=== PATIENT | male | born 1965 | race Caucasian/White ===

== ENCOUNTER 2019-04-04 20:33 | Inpatient (IN) | payer BC, OTHER ==
[2019-04-04] MEDS ORDERED: DILTIAZEM DRIP BOLUS FROM BAG 1 MG SOLN IV ONE (21:40)
[2019-04-04] MEDS ORDERED: SODIUM CHLORIDE 0.9% 500 ML 500 ML IV STA (21:40)
[2019-04-04 21:50] LABS: Basophils % (A) 0 %; Eosinophils # (A) 0.3 k/uL (0-0.7); Eosinophils % (A) 2 %; HCT 46.7 % (39.0-53.0); HGB 15.1 gm/dL (13.0-17.5); Lymphocytes # (A) 2.2 k/uL (1.0-4.8); Lymphocytes % (A) 21 %; MCH 27.7 pg (25.0-35.0); MCHC 32.3 g/dL (31.0-37.0); MCV 85.8 fL (80.0-100.0); Mean Platelet Volume 6.2; Monocytes # (A) 0.6 k/uL (0-1.0); Monocytes % (A) 5 %; Neutrophils # (A) 7.2 k/uL (1.3-7.7); Neutrophils % (A) 68 %; Platelet Count 218 k/uL (150-450); RBC 5.44 m/uL (4.30-5.90); RDW 14.4 % (11.5-15.5); WBC 10.6 k/uL (3.8-10.6)
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
[2019-04-04 22:00] LABS: Albumin 4.1 g/dL (3.5-5.0); Calcium 9.2 mg/dL (8.4-10.2); Magnesium 1.8 mg/dL (1.6-2.3); Potassium 4.3 mmol/L (3.5-5.1); Total Protein 6.7 g/dL (6.3-8.2)
[2019-04-04 22:11] LABS: D-Dimer 0.5 mg/L FEU (<0.60); INR 1.1 (<1.2); Partial Thromboplastin Time 23.9 sec (22.0-30.0); Prothrombin Time 11.4 sec (9.0-12.0)
--- NOTE | 2019-04-04 22:13 | XR ---
EXAMINATION: XR chest 2V DATE AND TIME: 04/04/2019 9:52 PM CLINICAL INDICATION: PHH; dysrhythmia TECHNIQUE: Departmental protocol COMPARISON: 04/27/2016 FINDINGS: There is a subtle interstitial pattern suggesting mild interstitial phase pulmonary edema if clinical ly corroborated. Otherwise, the lungs are clear and well-expanded bilaterally. The pleural spaces are negative. The cardiac silhouette is mildly enlarged. The remainder of the mediastinal silhouette is unremarkabl e. The skeletal structures and soft tissues are negative for acute findings. IMPRESSION: Suggestive findings for mild interstitial phase pulmonary edema.
[2019-04-04] MEDS: DILTIAZEM 125 MG in SODIUM CHLORIDE 0.9% 100 ML IV SCH (22:18)
[2019-04-04] MEDS ORDERED: ENOXAPARIN 150 MG/ML SYRINGE SQ STA (23:31)
[2019-04-05] MEDS ORDERED: NITROGLYCERIN SL TABS 0.4 MG TAB SUBLINGUAL PRN (00:07)
[2019-04-05 01:15] LABS: Appearance,Urine Clear (Clear); Bilirubin,Urine Negative (Negative); Blood,Urine Negative (Negative); Color,Urine Yellow; Glucose,Urine (UA) Negative (Negative); Ketones,Urine Negative (Negative); Leukocyte Esterase,Urine Negative (Negative); Nitrite,Urine Negative (Negative); Protein,Urine Trace (Negative); Urobilinogen,Urine <2.0 mg/dL (<2.0)
[2019-04-05 01:26] LABS: Amphetamine Screen,Urine Not Detected (NotDetected); Barbiturate Screen,Urine Not Detected (NotDetected); Benzodiazepines Screen,Urine Not Detected (NotDetected); Cocaine Screen,Urine Not Detected (NotDetected); Methadone Screen, Urine Not Detected (NotDetected); Opiate Screen,Urine Not Detected (NotDetected); Oxycodone Screen, Urine Not Detected (NotDetected); Phencyclidine Screen,Urine Not Detected (NotDetected); Tricyclic Antidepressant,Urine Not Detected (NotDetected); Urn Cannabinoid Scrn Detected (NotDetected)
[2019-04-05 05:13] LABS: Anisocytosis Slight; Basophils % (A) 0 %; Eosinophils # (A) 0.3 k/uL (0-0.7); Eosinophils % (A) 3 %; HCT 44.8 % (39.0-53.0); HGB 14.3 gm/dL (13.0-17.5); Lymphocytes # (A) 2.1 k/uL (1.0-4.8); Lymphocytes % (A) 23 %; MCH 27.9 pg (25.0-35.0); MCV 87.3 fL (80.0-100.0); Monocytes # (A) 0.5 k/uL (0-1.0); Monocytes % (A) 6 %; Neutrophils % (A) 66 %; Platelet Count 168 k/uL (150-450); RBC 5.13 m/uL (4.30-5.90); RDW 16.2 % (11.5-15.5); WBC 9.1 k/uL (3.8-10.6)
[2019-04-05 05:19] LABS: Calcium 8.5 mg/dL (8.4-10.2); Magnesium 1.7 mg/dL (1.6-2.3)
[2019-04-05] MEDS: MAGNESIUM SULFATE-D5W PMX 1 GM in DEXTROSE/WATER 1 100ML.BAG IVPB SCH ×2 (06:42→07:38)
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
[2019-04-05] MEDS: DILTIAZEM 125 MG in SODIUM CHLORIDE 0.9% 100 ML IV SCH ×2 (08:56→20:12)
--- NOTE | 2019-04-05 09:06 | US ---
EXAMINATION TYPE: US venous doppler duplex LE DATE OF EXAM: 04/05/2019 8:49 AM COMPARISON: NONE CLINICAL HISTORY: Rule out DVT.Bilateral foot swelling today. SIDE PERFORMED: Bilateral TECHNIQUE: The lower extremity deep venous system is examined utilizing real time linear array sonog nolberto with graded compression, doppler sonography and color-flow sonography. VESSELS IMAGED: Common Femoral Vein Deep Femoral Vein Greater Saphenous Vein * Femoral Vein Popliteal Vein Small Saphenous Vein * Proximal Calf Veins (* superficial vessels) There is normal flow, compressibility, vascular waveforms. Right Leg: Negative for DVT Left Leg: Negative for DVT Some edema channels are present within the left leg IMPRESSION: No evident deep venous arthrosis at or above the knees, follow-up as indicated.
[2019-04-05 10:38] VITALS: BMI 43.2
--- NOTE | 2019-04-05 12:59 | ECHOF ---
Referral Reason:New-onset atrial flutter MEASUREMENTS -------- HEIGHT: 200.7 cm WEIGHT: 132.9 kg BP: 103/78 RVIDd: 3.7 cm (< 3.3) IVSd: 1.2 cm (0.6 - 1.1) LVIDd: 5.3 cm (3.9 - 5.3) LVPWd: 1.3 cm (0.6 - 1.1) IVSs: 1.6 cm LVIDs: 4.0 cm LVPWs: 2.0 cm LAESV Index (A-L): 27.19 ml/m Ao Diam: 3.2 cm (2.0 - 3.7) AV Cusp: 2.5 cm (1.5 - 2.6) LA Diam: 4.5 cm (2.7 - 3.8) EPSS: 0.9 cm RAP: 20.00 mmHg RVSP: 56.32 mmHg MV EF SLOPE: 143.89 mm/s (70 - 150) MV EXCURSION: 1.47 cm (> 18.000) FINDINGS -------- Atrial fibrillation. This was a technically difficult study with suboptimal views. The left ventricular size is normal. There is mild concentric left ventricular hypertrophy. There is mild global hypokinesis of LV . Overall left ventricular systolic function is mildly impaired w ith, an EF between 45 - 50 %. The right ventricle is mildly enlarged. Left atrium is normal size by volume. The right atrial size is normal. Lumason used Interatrial and interventricular septum intact. The aortic valve is trileaflet and appears structurally normal. The mitral valve is normal. [id number] mitral regurgitation is present. Moderate to severe tricuspid regurgitation present. There is moderate to severe pulmonary hypertens ion. The right ventricular systolic pressure, as measured by Doppler, is 56.32mmHg. The pulmonic valve was not well visualized. Trace/mild (physiologic) pulmonic regurgitation. The aortic root size is normal. The inferior vena cava is dilated with no significant inspiratory collapse which is consistent estima jose g right atrial pressure of >20 mmHg. There is a trivial pericardial effusion present. CONCLUSIONS -------- 1. Atrial fibrillation. 2. This was a technically difficult study with suboptimal views. 3. The left ventricular size is normal. 4. There is mild concentric left ventricular hypertrophy. 5. There is mild global hypokinesis of LV . 6. Overall left ventricular systolic function is mildly impaired with, an EF between 45 - 50 %. 7. The right ventricle is mildly enlarged. 8. Left atrium is normal size by volume. 9. Lumason used 10. Interatrial and interventricular septum intact. 11. The aortic valve is trileaflet and appears structurally normal. 12. The mitral valve is normal. 13. [id number] mitral regurgitation is present. 14. Moderate to severe tricuspid regurgitation present. 15. There is moderate to severe pulmonary hypertension. 16. Trace/mild (physiologic) pulmonic regurgitation. 17. The aortic root size is normal. 18. The inferior vena cava is dilated with no significant inspiratory collapse which is consistent es timated right atrial pressure of >20 mmHg. 19. There is a trivial pericardial effusion present. LOG LOADER HELPER: Kamini Pérez RDCS
[2019-04-05] MEDS: ENOXAPARIN 150 MG/ML SYRINGE SQ SCH (13:41)
[2019-04-05] MEDS: METOPROLOL TARTRATE 12.5 MG TAB PO SCH ×2 (14:11→20:08)
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
[2019-04-05] MEDS: WARFARIN 5 MG TAB PO SCH (18:18)
[2019-04-06] MEDS: ENOXAPARIN 150 MG/ML SYRINGE SQ SCH ×2 (00:27→12:05)
[2019-04-06 06:04] LABS: Basophils % (A) 0 %; Eosinophils # (A) 0.3 k/uL (0-0.7); Eosinophils % (A) 3 %; HCT 45.6 % (39.0-53.0); HGB 14.2 gm/dL (13.0-17.5); Lymphocytes # (A) 1.5 k/uL (1.0-4.8); Lymphocytes % (A) 16 %; MCH 27.5 pg (25.0-35.0); MCHC 31.1 g/dL (31.0-37.0); MCV 88.6 fL (80.0-100.0); Mean Platelet Volume 6.3; Monocytes # (A) 0.5 k/uL (0-1.0); Monocytes % (A) 5 %; Neutrophils # (A) 6.8 k/uL (1.3-7.7); Neutrophils % (A) 73 %; Platelet Count 201 k/uL (150-450); RBC 5.14 m/uL (4.30-5.90); RDW 14.4 % (11.5-15.5); WBC 9.4 k/uL (3.8-10.6)
[2019-04-06 06:20] LABS: INR 1.1 (<1.2); Prothrombin Time 11.7 sec (9.0-12.0)
[2019-04-06 06:22] LABS: Calcium 8.5 mg/dL (8.4-10.2); Potassium 4.5 mmol/L (3.5-5.1)
[2019-04-06] MEDS: METOPROLOL TARTRATE 12.5 MG TAB PO SCH (09:36)
[2019-04-06] MEDS: ASPIRIN 325 MG TAB PO SCH (09:36)
[2019-04-06] MEDS: DIGOXIN 250 MCG/ML 2 ML AMP IVP SCH ×2 (13:14→17:01)
--- NOTE | 2019-04-06 15:42 | P.PN ---
Subjective Progress Note Date: 04/06/19 This 53-year-old gentleman is admitted to the hospital with atrial fibrillation, cardiomyopathy and congestive heart failure. Patient is feeling better. Less short of breath. Urine output is good. Patient went into atrial fibrillation with rapid ventricular response last night. Patient required restarting of Cardizem. I'm going to start him on Lanoxin 0.25 mg now and repeat dose of 0.25 and 6 hours. Lanoxin 0.125 mg from tomorrow. We'll continue with the rest of the medication. Increase activity. Probably discontinue IV Cardizem in few hours Objective - Vital Signs Vital signs: Vital Signs Temp 98.1 F 04/06/19 08:00 Pulse 111 H 04/06/19 10:00 Resp 21 04/06/19 10:00 BP 112/98 04/06/19 10:00 Pulse Ox 95 04/06/19 10:00 Intake & Output 04/05/19 04/06/19 04/06/19 18:59 06:59 18:59 Intake Total 417.583 28.833 Output Total 875 625 300 Balance -457.417 -596.167 -300 Weight 132.903 kg 137.3 kg Intake: Intake, IV Titration 177.583 28.833 Amount Diltiazem 125 mg In 177.583 28.833 Sodium Chloride 0.9% 100 ml @ 5 MG/HR 5 mls/hr IV .Q24H [facility] Rx#:[id number] Oral 240 Output: Urine 875 625 300 Other: Voiding Method Urinal Urinal Urinal # Voids 1 - Exam GENERAL EXAM: Patient is alert and oriented and doesn't appear to be in any acute distress HEENT: Normocephalic. Normal reaction of pupils, equal size, normal range of extraocular motion. No erythema or exudates in the throat. NECK: No masses, no nuchal rigidity. CHEST: No chest wall deformity. LUNGS: Equal air entry with no crackles or wheeze. HEART: S1 and S2 normal. Irregular heart sounds ABDOMEN: No hepatosplenomegaly, normal bowel sounds, no guarding or rigidity. SKIN: No rashes CENTRAL NERVOUS SYSTEM: No focal deficits. EXTREMITIES: Resolving edema - Labs CBC & Chem 7: 04/06/19 05:28 04/06/19 05:28 Labs: Abnormal Lab Results - Last 24 Hours (Table) 04/06/19 Range/Units 05:28 Glucose 119 H (74-99) mg/dL HDL Cholesterol 26 L (40-60) mg/dL Assessment and Plan (1) Combined systolic and diastolic heart failure, acute Current Visit: Yes Status: Acute Code(s): I50.41 - ACUTE COMBINED SYSTOLIC AND DIASTOLIC (CONGESTIVE) HRT FAIL SNOMED Code(s): 996352875720637 (2) Atrial flutter with rapid ventricular response Current Visit: Yes Status: Acute Code(s): I48.92 - UNSPECIFIED ATRIAL FLUTT ER SNOMED Code(s): 2471056 Plan: Patient is improving. His heart rate is not well controlled. I will initiate him on IV digoxin and increase the beta lesly as tolerated. Increase activity
[2019-04-06] MEDS: FUROSEMIDE 40 MG TAB PO SCH (17:03)
[2019-04-06] MEDS: WARFARIN 5 MG TAB PO SCH (17:03)
[2019-04-06] MEDS: METOPROLOL TARTRATE 25 MG TAB PO SCH (20:21)
[2019-04-07] MEDS: ENOXAPARIN 150 MG/ML SYRINGE SQ SCH ×2 (00:31→13:37)
[2019-04-07 05:32] LABS: Anisocytosis Slight; HCT 45.6 % (39.0-53.0); MCH 28.5 pg (25.0-35.0); MCHC 32.9 g/dL (31.0-37.0); MCV 86.6 fL (80.0-100.0); Mean Platelet Volume 6.6; Platelet Count 174 k/uL (150-450); RBC 5.26 m/uL (4.30-5.90); WBC 9.2 k/uL (3.8-10.6)
[2019-04-07 05:41] LABS: INR 1.1 (<1.2)
[2019-04-07 05:49] LABS: Calcium 8.6 mg/dL (8.4-10.2); Potassium 4.2 mmol/L (3.5-5.1)
--- NOTE | 2019-04-07 06:54 | P.PN ---
Subjective This is a pleasant 53 years old male with past medical history of syncope, osteoarthritis. Depression and marijuana use. Presents with dyspnea for 1 month duration. Patient states that he came to the hospital because of 2 days of leg swelling, more on the left side and one month history of dyspnea. However patient denies chest pain or discomfort. No abdominal pain or fever. No change in urine or bowel habits. No dizziness or syncope. Also he denies smoking or alcohol. On admission he is been afebrile, tachycardic 100-120, blood pressure is stable and he is saturating 99% on 2 L oxygen. Labs show normal WBC and unremarkable CBC and BMP. On admission his creatinine was elevated at 1.3, came to within normal limits to 1.2. ProBNP is 3620. TSH 2.8. Negative troponin. EKG showing atrial flutter with variable AV block heart rate of 144. Patient was started on Cardizem drip currently at 5 mg per hour, started on Lovenox at the rapeutic dose 1:30 milligrams twice a day. Also aspirin 325 mg. And replace electrolytes. 04/06/2019 pt is comfortable in not distress. he denies chest pain , no dyspnea , he says both feels better , pt is mildly tachycardic, pt alreay has Echo showing the atrial biritllatoin , EF 45-55%, moderate Mitral regurgitation , moderate to sever tricuspid regurgitation.doppler of lower extremities was negative for DVT. he is on aspirin, and plavixs ,cardizem ,. pt is on lovenox and warfarin for a nticoagulation , INR is still 1.1 Objective - Vital Signs Vital signs: Vital Signs Temp 98.2 F 04/06/19 20:00 Pulse 118 H 04/06/19 20:00 Resp 23 04/06/19 20:00 BP 119/73 04/06/19 20:00 Pulse Ox 96 04/06/19 20:00 Intake & Output 04/06/19 04/06/19 04/07/19 06:59 18:59 06:59 Intake Total 28.833 310.583 Output Total 625 550 Balance -596.167 -239.417 Weight 137.3 kg Intake: Intake, IV Titration 60.583 Amount Diltiazem 125 mg In 60.583 Sodium Chloride 0.9% 100 ml @ 5 MG/HR 5 mls/hr IV .Q24H [facility] Rx#:[id number] Oral 250 Output: Urine 625 550 Other: Voiding Method Urinal Urinal Urinal # Voids 1 1 # Bowel Movements 1 - Exam GENERAL: The patient is alert and oriented x3, not in any acute distress. Well developed, well nourished. HEENT: Pupils are round and equally reacting to light. EOMI. No scleral icterus. No conjunctival pallor. Normocephalic, atraumatic. No pharyngeal erythema. No thyromegaly. CARDIOVASCULAR: S1 and S2 present. No murmurs, rubs, or gallops. PULMONARY: Chest is clear to auscultation, no wheezing or crackles. ABDOMEN: Soft, nontender, nondistended, normoactive bowel sounds. No palpable organomegaly. MUSCULOSKELETAL: No joint swelling or deformity. -EXTREMITIES: No cyanosis, clubbing. Bilateral leg edema, more on the left side NEUROLOGICAL: Gross neurological examination did not reveal any focal deficits. SKIN: No rashes. - Labs CBC & Chem 7: 04/07/19 05:13 04/07/19 05:13 Labs: Abnormal Lab Results - Last 24 Hours (Table) 04/06/19 Range/Units 05:28 Glucose 119 H (74-99) mg/dL HDL Cholesterol 26 L (40-60) mg/dL Assessment and Plan Assessment: Atrial fibrillation/flutter, with rapid ventricular response Acute systolic congestive heart failure, EF 45-55% moderate Mitral regurgitation , moderate to sever tricuspid regurgitation. History of syncope Substance abuse, marijuana Plan: This is a pleasant 53 years old male who presents because of atrial f ibrillation/flutter with RVR. treated with Cardizem drip until it is wished to oral Cardizem or beta blockers as per machine sole leveler. Continue with anticoagulation. Cardiology consult. Doppler of the lower extremity was negative for DVT. Labs and medication were reviewed.. Continue same treatment. Continue with symptomatic treatment. Resume home medication. Monitor lytes and vitals. DVT and GI prophylaxis. Further recommendations of the clinical course of the patient DVT prophylaxis: Subcutaneous Lovenox GI Prophylaxis: Pepcid Prognosis is guarded
[2019-04-07] MEDS: ASPIRIN 325 MG TAB PO SCH (09:59)
[2019-04-07] MEDS: FAMOTIDINE 20 MG/2 ML VIAL IV SCH ×2 (09:59→21:10)
[2019-04-07] MEDS: SPIRONOLACTONE 25 MG TAB PO SCH (10:10)
[2019-04-07] MEDS: FUROSEMIDE 40 MG TAB PO SCH ×2 (10:11→16:40)
[2019-04-07] MEDS: DIGOXIN 125 MCG TAB PO SCH (10:11)
[2019-04-07] MEDS: METOPROLOL TARTRATE 25 MG TAB PO SCH (10:11)
[2019-04-07] MEDS ORDERED: METOPROLOL TARTRATE 25 MG TAB PO STA (11:41)
[2019-04-07] MEDS: DILTIAZEM 125 MG in SODIUM CHLORIDE 0.9% 100 ML IV SCH (16:38)
[2019-04-07] MEDS: WARFARIN 5 MG TAB PO SCH (16:40)
--- NOTE | 2019-04-07 17:23 | P.PN ---
Subjective Progress Note Date: 04/07/19 This 53-year-old gentleman is admitted to the hospital with atrial fibrillation, cardiomyopathy and congestive heart failure. Patient is feeling better. Less short of breath. Urine output is good. Patient went into atrial fibrillation with rapid ventricular response last night. Patient required restarting of Cardizem. I'm going to start him on Lanoxin 0.25 mg now and repeat dose of 0.25 and 6 hours. Lanoxin 0.125 mg from tomorrow. We'll continue with the rest of the medication. Increase activity. Probably discontinue IV Cardizem in few hours. 04/07/2019. This patient is admitted to the hospital with the findings of CHF and found to have cardiomyopathy. Patient also in atrial fibrillation. Patient is on combination of metoprolol and Lanoxin for rate control. I increase the dose of the metoprolol to 50 mg twice a day. Patient otherwise clinically doing well. His edema has cleared. We'll switch to by mouth diuretics. Increase activity. Possible discharge within next 24 hours. Lab values show normal hemoglobin. Electoral lites are normal. Renal function is normal with c reatinine of 1.19. Magnesium level is 2 Objective - Vital Signs Vital signs: Vital Signs Temp 97.5 F L 04/07/19 16:00 Pulse 123 H 04/07/19 16:00 Resp 20 04/07/19 16:00 BP 117/77 04/07/19 16:00 Pulse Ox 98 04/07/19 16:00 Intake & Output 04/06/19 04/07/19 04/07/19 18:59 06:59 18:59 Intake Total 310.583 250 270 Output Total 550 1950 1600 Balance -239.417 -1700 -1330 Weight 132.8 kg Intake: IV 20 0.9 20 Intake, IV Titration 60.583 Amount Diltiazem 125 mg In 60.583 Sodium Chloride 0.9% 100 ml @ 5 MG/HR 5 mls/hr IV .Q24H [facility] Rx#:[id number] Oral 250 250 250 Output: Urine 550 1950 1600 Other: Voiding Method Urinal Urinal Urinal # Voids 2 1 # Bowel Movements 1 1 - Exam GENERAL EXAM: Patient is alert and oriented and doesn't appear to be in any acute distress HEENT: Normocephalic. Normal reaction of pupils, equal size, normal range of extraocular motion. No erythema or exudates in the throat. NECK: No masses, no nuchal rigidity. CHEST: No chest wall deformity. LUNGS: Equal air entry with no crackles or wheeze. HEART: S1 and S2 normal. Irregular heart sounds ABDOMEN: No hepatosplenomegaly, normal bowel sounds, no guarding or rigidity. SKIN: No rashes CENTRAL NERVOUS SYSTEM: No focal deficits. EXTREMITIES: Resolved edema - Labs CBC & Chem 7: 04/07/19 05:13 04/07/19 05:13 Labs: Abnormal Lab Results - Last 24 Hours (Table) 04/07/19 04/07/19 Range/Units 05:13 05:13 RDW 16.0 H (11.5-15.5) % Carbon Dioxide 31 H (22-30) mmol/L Glucose 104 H (74-99) mg/dL Assessment and Plan (1) Combined systolic and diastolic heart failure, acute Current Visit: Yes Status: Acute Code(s): I50.41 - ACUTE COMBINED SYSTOLIC AND DIASTOLIC (CONGESTIVE) HRT FAIL SNOMED Code(s): 705783383577172 (2) Atrial flutter with rapid ventricular response Current Visit: Yes Status: Acute Code(s): I48.92 - UNSPECIFIED ATRIAL FLUTTER SNOMED Code(s): 2116125 Plan: I will increase the dose of the metoprolol to 80 mg by mouth twice a day. Continue rest of the medical therapy. Increase activity. Possible discharge in a.m.
[2019-04-07] MEDS: METOPROLOL TARTRATE 50 MG TAB PO SCH (21:10)
[2019-04-08] MEDS: ENOXAPARIN 150 MG/ML SYRINGE SQ SCH ×3 (00:55→23:52)
[2019-04-08 07:09] LABS: INR 1.2 (<1.2); Prothrombin Time 12.3 sec (9.0-12.0)
[2019-04-08 07:10] LABS: Basophils % (A) 0 %; Eosinophils # (A) 0.3 k/uL (0-0.7); Eosinophils % (A) 4 %; HGB 16.5 gm/dL (13.0-17.5); Lymphocytes # (A) 1.9 k/uL (1.0-4.8); Lymphocytes % (A) 22 %; MCHC 32.4 g/dL (31.0-37.0); MCV 86.4 fL (80.0-100.0); Mean Platelet Volume 6.1; Monocytes # (A) 0.6 k/uL (0-1.0); Monocytes % (A) 6 %; Neutrophils # (A) 5.7 k/uL (1.3-7.7); Neutrophils % (A) 65 %; Platelet Count 218 k/uL (150-450); RDW 14.2 % (11.5-15.5); WBC 8.8 k/uL (3.8-10.6)
[2019-04-08 07:16] LABS: Calcium 8.7 mg/dL (8.4-10.2); Potassium 4.5 mmol/L (3.5-5.1)
[2019-04-08] MEDS: ASPIRIN 325 MG TAB PO SCH (10:25)
[2019-04-08] MEDS: SPIRONOLACTONE 25 MG TAB PO SCH (10:25)
[2019-04-08] MEDS: METOPROLOL TARTRATE 50 MG TAB PO SCH ×2 (10:25→20:52)
--- NOTE | 2019-04-08 10:25 | P.PN ---
Subjective Progress Note Date: 04/08/19 This 53-year-old gentleman is admitted to the hospital with atrial fibrillation, cardiomyopathy and congestive heart failure. Patient is feeling better. Less short of breath. Urine output is good. Patient went into atrial fibrillation with rapid ventricular response last night. Patient required restarting of Cardizem. I'm going to start him on Lanoxin 0.25 mg now and repeat dose of 0.25 and 6 hours. Lanoxin 0.125 mg from tomorrow. We'll continue with the rest of the medication. Increase activity. Probably discontinue IV Cardizem in few hours. 04/07/2019. This patient is admitted to the hospital with the findings of CHF and found to have cardiomyopathy. Patient also in atrial fibrillation. Patient is on combination of metoprolol and Lanoxin for rate control. I increase the dose of the metoprolol to 50 mg twice a day. Patient otherwise clinically doing well. His edema has cleared. We'll switch to by mouth diuretics. Increase activity. Possible discharge within next 24 hours. Lab values show normal hemoglobin. Electoral lites are normal. Renal function is normal with c reatinine of 1.19. Magnesium level is 2 03/29/2019: The patient has been continued on Coumadin but unfortunately his INR today is only 1.2. Goal is between 2 and 2.5. We'll plan on 7.5 mg Coumadin tonight. He is currently being bridged with Lovenox but does not have any insurance coverage. Plan to recheck INR in the morning with possible discharge tomorrow. BUN 18 creatinine 1.4. Lasix will be changed to daily. Patient is off Cardizem drip. Objective - Vital Signs Vital signs: Vital Signs Temp 98 F 04/07/19 20:00 Pulse 92 04/08/19 03:38 Resp 18 04/08/19 03:38 BP 152/93 04/08/19 03:38 Pulse Ox 96 04/08/19 03:38 Intake & Output 04/07/19 04/08/19 04/08/19 18:59 06:59 18:59 Intake Total 270 370 240 Output Total 1600 1400 700 Balance -5830 -1030 -460 Weight 127.4 kg Intake: IV 20 0.9 20 Oral 250 370 240 Output: Urine 1600 1400 700 Other: Voiding Method Urinal Urinal # Voids 1 1 # Bowel Movements 1 - Exam GENERAL EXAM: Patient is alert and oriented in no acute distress HEENT: Normocephalic. Normal reaction of pupils, equal size, normal range of extraocular motion. No erythema or exudates in the throat. NECK: No masses, no nuchal rigidity. CHEST: No chest wall deformity. LUNGS: Equal air entry with no crackles or wheeze. HEART: S1 and S2 normal. Irregular heart sounds ABDOMEN: No hepatosplenomegaly, normal bowel sounds, no guarding or rigidity. SKIN: No rashes CENTRAL NERVOUS SYSTEM: No focal deficits. EXTREMITIES: Resolved edema - Labs CBC & Chem 7: 04/08/19 06:34 04/08/19 06:34 Labs: Abnormal Lab Results - Last 24 Hours (Table) 04/08/19 04/08/19 Range/Units 06:34 06:34 PT 12.3 H (9.0-12.0) sec INR 1.2 H (<1.2) Carbon Dioxide 33 H (22-30) mmol/L Creatinine 1.40 H (0.66-1.25) mg/dL Glucose 123 H (74-99) mg/dL Assessment and Plan Plan: (1) Combined systolic and diastolic heart failure, acute Current Visit: Yes Status: Acute Code(s): I50.41 - ACUTE COMBINED SYSTOLIC AND DIASTOLIC (CONGESTIVE) HRT FAIL SNOMED Code(s): 787916741836110 (2) Atrial flutter with rapid ventricular response Current Visit: Yes Status: Acute Code(s): I48.92 - UNSPECIFIED ATRIAL FLUTTER SNOMED Code(s): 4197554 Plan: Coumadin 7.5 mg tonight and recheck INR in the morning. Lasix will be decreased to 40 mg daily. Continue Lopressor 50 mg twice daily, digoxin 125 g daily, Aldactone 12.5 mg daily. Increase activity. Possible discharge in a.m. Nurse practitioner note has been reviewed, I agree with the document and findings and plan of care. Patient has been seen and examined.
[2019-04-08] MEDS: FUROSEMIDE 40 MG TAB PO SCH (10:26)
[2019-04-08] MEDS: FAMOTIDINE 20 MG/2 ML VIAL IV SCH ×2 (10:26→20:52)
[2019-04-08] MEDS: DIGOXIN 125 MCG TAB PO SCH (10:26)
[2019-04-08] MEDS ORDERED: WARFARIN 7.5 MG TAB PO SCH (18:00)
--- NOTE | 2019-04-08 21:57 | P.PN ---
Subjective Progress Note Date: 04/07/19 Principal diagnosis: New-onset atrial fibrillation This is a pleasant 53 years old male with past medical history of syncope, osteoarthritis. Depression and marijuana use. Presents with dyspnea for 1 month duration. Patient states that he came to the hospital because of 2 days of leg swelling, more on the left side and one month history of dyspnea. However patient denies chest pain or discomfort. No abdominal pain or fever. No change in urine or bowel habits. No dizziness or syncope. Also he denies smoking or alcohol. On admission he is been afebrile, tachycardic 100-120, blood pressure is stable and he is saturating 99% on 2 L oxygen. Labs show normal WBC and unremarkable CBC and BMP. On admission his creatinine was elevated at 1.3, came to within normal limits to 1.2. ProBNP is 3620. TSH 2.8. Negative troponin. EKG showing atrial flutter with variable AV block heart rate of 144. Patient was started on Cardizem drip currently at 5 mg per hour, started on Lovenox at therapeutic dose 1:30 milligrams twice a day. Also aspirin 325 mg. And replace electrolytes. 04/06/2019 pt is comfortable in not distress. he denies chest pain , no dyspnea , he says both feels better , pt is mildly tachycardic, pt alreay has Echo showing the atrial biritllatoin , EF 45-55%, moderate Mitral regurgitation , moderate to sever tricuspid regurgitation.doppler of lower extremities was negative for DVT. he is on aspirin, and plavixs ,cardizem ,. pt is on lovenox and warfarin for anticoagulation , INR is still 1.1 04 07 2019 Patient was admitted to the hospital with fibrillation, rapid regular rate. Also developed acute CHF with both systolic and diastolic dysfunction. Currently rate is fairly controlled. Continued on metoprolol increase the dose today. Lasix changed to by mouth. Cardiology is following. No complaints of chest pain or worsening shortness of breath. No nausea vomiting or abdominal pain or diarrhea. No other acute overnight issues. Current medications reviewed. Objective - Vital Signs Vital signs: Vital Signs Temp 97.5 F L 04/07/19 16:00 Pulse 123 H 04/07/19 16:00 Resp 20 04/07/19 16:00 BP 117/77 04/07/19 16:00 Pulse Ox 98 04/07/19 16:00 Intake & Output 04/07/19 04/07/19 04/08/19 06:59 18:59 06:59 Intake Total 250 270 Output Total 1949 1599 Balance -1700 -1330 Weight 132.8 kg Intake: IV 20 0.9 20 Oral 250 250 Output: Urine 1949 1599 Other: Voiding Method Urinal Urinal # Voids 2 1 # Bowel Movements 1 1 - Exam PHYSICAL EXAMINATION: Patient is lying in the bed comfortably, no acute distress, awake alert and oriented.. HEENT: Normocephalic. Neck is supple. Pupils reactive. Nostrils clear. Oral cavity is moist. Ears reveal no drainage. Neck reveals no JVD, carotid bruits, or thyromegaly. CHEST EXAMINATION: Trachea is central. Symmetrical expansion. Minimal basilar crackles. Lung hurtado clear to auscultation and percussion. CARDIAC: Normal S1, S2 with no gallops. No murmurs ABDOMEN: Soft. Bowel sounds normal. No organomegaly. No abdominal bruits. Extremities: Trace edema. No clubbing or cyanosis Neurologically awake, alert, oriented x3 with well-coordinated movements. No focal deficits noted Skin: No rash or skin lesions. Psychiatric: Coperative. Nonsuicidal Musculoskeletal: No joint swelling or deformity. Normal range of motion. - Labs CBC & Chem 7: 04/08/19 06:34 04/08/19 06:34 Labs: Abnormal Lab Results - Last 24 Hours (Table) 04/07/19 04/07/19 Range/Units 05:13 05:13 RDW 16.0 H (11.5-15.5) % Carbon Dioxide 31 H (22-30) mmol/L Glucose 104 H (74-99) mg/dL Assessment and Plan Assessment: Atrial fibrillation/flutter, with rapid ventricular response Acute systolic and diastolic congestive heart failure, EF 45-55% moderate Mitral regurgitation , moderate to sever tricuspid regurgitation. History of syncope Substance abuse, marijuana Coumadin dosing Plan: This is a pleasant 53 years old male who presents because of atrial fibrillation/flutter with RVR. treated with Cardizem drip until it is wished to oral Cardizem or beta blockers as per mold setter. Continue with anticoagulation. Cardiology is following. Doppler of the lower extremity was negative for DVT. Labs and medication were reviewed.. Monitor lytes and vitals. DVT and GI prophylaxis. Further recommendations based on the clinical course of the patient DVT prophylaxis: Subcutaneous Lovenox and also on Coumadin. GI Prophylaxis: Pepcid Prognosis is guarded Time with Patient: Greater than 30
[2019-04-09] MEDS: DILTIAZEM 125 MG in SODIUM CHLORIDE 0.9% 100 ML IV SCH (03:43)
[2019-04-09 07:01] LABS: INR 1.3 (<1.2); Prothrombin Time 13.3 sec (9.0-12.0)
[2019-04-09] MEDS: ASPIRIN 325 MG TAB PO SCH (08:33)
[2019-04-09] MEDS: METOPROLOL TARTRATE 50 MG TAB PO SCH (08:33)
[2019-04-09] MEDS: DIGOXIN 125 MCG TAB PO SCH (08:33)
[2019-04-09] MEDS: SPIRONOLACTONE 25 MG TAB PO SCH (08:33)
[2019-04-09] MEDS ORDERED: FAMOTIDINE 20 MG TAB PO SCH (09:00)
[2019-04-09] MEDS ORDERED: FUROSEMIDE 40 MG TAB PO SCH (09:00)
[2019-04-09 09:37] VITALS: PULSE 65; RESP 16
[2019-04-09 11:51] VITALS: TEMP 97.8
--- NOTE | 2019-04-09 14:56 | P.PN ---
Subjective Progress Note Date: 04/09/19 This is a 53-year-old gentleman with history of depression and also marijuana use, was admitted to the hospital with complaints of increasing pedal swelling and shortness of breath over the last 2 months. Patient also having symptoms of orthopnea and paroxysmal nocturnal dyspnea. Patient has been is sleeping sitting up. No history of any dizziness, palpitation or syncope. No history of any recent upper respiratory infections. Patient however has been having some cough. Denies any smoking or alcohol abuse. On admission patient was found to have proBNP of more than 3620. EKG showed atrial flutter. Flutter and fibrillation with variable AV conduction with heart rates in the 140s. His echocardiogram showed an ejection fraction of 45-50%. There is evidence of severe tricuspid regurgitation. Mild to moderate mitral regurgitation and moderate pulmonary hypertension. Chest x-ray also showed evidence of CHF. Patient is being treated with IV Cardizem along with diuretics. I'm going to p ut him on beta lesly and SHARAN inhibitor R's along with diuretics and anticoagulation therapy. Patient will be started on Coumadin and INRs will be followed. Once patient's heart rate is controlled and CHF is cleared, patient could be discharged on medical therapy along with anticoagulation. We will consider cardioversion in about 4-6 weeks. Patient may also need workup to rule out underlying ischemic heart disease which can be done as a stress test in the near future. 04/09/2019 Patient was seen and examined this morning, doing much better overall, currently on by mouth diuretics. Objective - Vital Signs Vital signs: Vital Signs Temp 97.8 F 04/09/19 11:35 Pulse 65 04/09/19 11:35 Resp 16 04/09/19 11:35 BP 108/78 04/09/19 11:35 Pulse Ox 100 04/09/19 11:35 Intake & Output 04/08/19 04/09/19 04/09/19 18:59 06:59 18:59 Intake Total 906 1280 Output Total 700 Balance 206 1280 Weight 126.2 kg Intake: Oral 906 1280 Output: Urine 700 Other: Voiding Method Urinal Urinal Urinal # Voids 1 1 - Exam GENERAL EXAM: Patient is alert and oriented and doesn't appear to be in any acute distress HEENT: Normocephalic. Normal reaction of pupils, equal size, normal range of extraocular motion. No erythema or exudates in the throat. NECK: No masses, no nuchal rigidity. Mild JVD CHEST: No chest wall deformity. LUNGS: Diminished breath sounds at bases. HEART: It S1 and S2 normal with no audible mumurs or gallops. Irregular rhythm ABDOMEN: No hepatosplenomegaly, normal bowel sounds, no guarding or rigidity. SKIN: No rashes CENTRAL NERVOUS SYSTEM: No focal deficits. EXTREMITIES: 3+ edema - Labs CBC & Chem 7: 04/08/19 06:34 04/08/19 06:34 Labs: Abnormal Lab Results - Last 24 Hours (Table) 04/09/19 Range/Units 06:15 PT 13.3 H (9.0-12.0) sec INR 1.3 H (<1.2) Assessment and Plan Plan: Assessment and plan #1 combined systolic and diastolic congestive heart failure, improving #2 atrial flutter, typical Plan Patient is currently on Coumadin, because he has no insurance, we will switch him over to Eliquis, providing him with a coupon, and setting him up for financial assistance program. He may be able to be discharged home today from our perspective. We will make a follow-up appointment in the office post discharge. DNP note has been reviewed, I agree with a documented findings and plan of care. Patient was seen and examined.
[2019-04-09] MEDS: ENOXAPARIN 150 MG/ML SYRINGE SQ SCH (15:12)
--- NOTE | 2019-04-09 15:58 | P.PN ---
Subjective Progress Note Date: 04/08/19 Principal diagnosis: New-onset atrial fibrillation This is a pleasant 53 years old male with past medical history of syncope, osteoarthritis. Depression and marijuana use. Presents with dyspnea for 1 month duration. Patient states that he came to the hospital because of 2 days of leg swelling, more on the left side and one month history of dyspnea. However patient denies chest pain or discomfort. No abdominal pain or fever. No change in urine or bowel habits. No dizziness or syncope. Also he denies smoking or alcohol. On admission he is been afebrile, tachycardic 100-120, blood pressure is stable and he is saturating 99% on 2 L oxygen. Labs show normal WBC and unremarkable CBC and BMP. On admission his creatinine was elevated at 1.3, came to within normal limits to 1.2. ProBNP is 3620. TSH 2.8. Negative troponin. EKG showing atrial flutter with variable AV block heart rate of 144. Patient was started on Cardizem drip currently at 5 mg per hour, started on Lovenox at therapeutic dose 1:30 milligrams twice a day. Also aspirin 325 mg. And replace electrolytes. 04/06/2019 pt is comfortable in not distress. he denies chest pain , no dyspnea , he says both feels better , pt is mildly tachycardic, pt alreay has Echo showing the atrial biritllatoin , EF 45-55%, moderate Mitral regurgitation , moderate to sever tricuspid regurgitation.doppler of lower extremities was negative for DVT. he is on aspirin, and plavixs ,cardizem ,. pt is on lovenox and warfarin for anticoagulation , INR is still 1.1 04 07 2019 Patient was admitted to the hospital with fibrillation, rapid regular rate. Also developed acute CHF with both systolic and diastolic dysfunction. Currently rate is fairly controlled. Continued on metoprolol increase the dose today. Lasix changed to by mouth. Cardiology is following. No complaints of chest pain or worsening shortness of breath. No nausea vomiting or abdominal pain or diarrhea. No other acute overnight issues. 04/08/2010 Patient denied any complaints of chest pain or shortness of breath. No palpitations. No headache or dizziness or lightheadedness. INR level is 1.2 today. Patient is on Lovenox. Lasix has been changed to by mouth. No nausea vomiting or abdominal pain. Patient denied any other complaints at this time. Heart rate is better controlled. Current medications reviewed. Objective - Vital Signs Vital signs: Vital Signs Temp 98.4 F 04/08/19 20:00 Pulse 79 04/08/19 20:00 Resp 18 04/08/19 20:00 BP 124/86 04/08/19 20:00 Pulse Ox 98 04/08/19 20:00 Intake & Output 04/08/19 04/08/19 04/09/19 06:59 18:59 06:59 Intake Total 370 906 Output Total 1400 700 Balance -1030 206 Weight 127.4 kg Intake: Oral 370 906 Output: Urine 1400 700 Other: Voiding Method Urinal Urinal Urinal # Voids 1 - Exam PHYSICAL EXAMINATION: Patient is lying in the bed comfortably, no acute distress, awake alert and oriented.. HEENT: Normocephalic. Neck is supple. Pupils reactive. Nostrils clear. Oral cavity is moist. Ears reveal no drainage. Neck reveals no JVD, carotid bruits, or thyromegaly. CHEST EXAMINATION: Trachea is central. Symmetrical expansion. Minimal basilar crackles. Lung hurtado clear to auscultation and percussion. CARDIAC: Normal S1, S2 with no gallops. No murmurs ABDOMEN: Soft. Bowel sounds normal. No organomegaly. No abdominal bruits. Extremities: Trace edema. No clubbing or cyanosis Neurologically awake, alert, oriented x3 with well-coordinated movements. No focal deficits noted Skin: No rash or skin lesions. Psychiatric: Coperative. Nonsuicidal Musculoskeletal: No joint swelling or deformity. Normal range of motion. - Labs CBC & Chem 7: 04/08/19 06:34 04/08/19 06:34 Labs: Abnormal Lab Results - Last 24 Hours (Table) 04/08/19 04/08/19 Range/Units 06:34 06:34 PT 12.3 H (9.0-12.0) sec INR 1.2 H (<1.2) Carbon Dioxide 33 H (22-30) mmol/L Creatinine 1.40 H (0.66-1.25) mg/dL Glucose 123 H (74-99) mg/dL Assessment and Plan Assessment: Atrial fibrillation/flutter, with rapid ventricular response Acute systolic and diastolic congestive heart failure, EF 45-55% moderate Mitral regurgitation , moderate to sever tricuspid regurgitation. History of syncope Substance abuse, marijuana Coumadin dosing Plan: This is a pleasant 53 years old male who presents because of atrial fibrillation/flutter with RVR. treated with Cardizem drip until it is wished to oral Cardizem or beta blockers as per cuff slitter. Continue with anticoagulation. Cardiology is following. Doppler of the lower extremity was negative for DVT. Labs and medication were reviewed.. Monitor lytes and vitals. DVT and GI prophylaxis. Further recommendations based on the clinical course of the patient DVT prophylaxis: Subcutaneous Lovenox and also on Coumadin. GI Prophylaxis: Pepcid Prognosis is guarded Time with Patient: Greater than 30
[2019-04-09] MEDS ORDERED: METOPROLOL TARTRATE 50 MG TAB PO SCH (16:00)
[2019-04-09 16:05] VITALS: BP 118/68
--- NOTE | 2019-04-09 16:10 | CDI ---
Documentation Clarification Form Date: April 09, 2019 From: Carmita Mo RN CCDS Phone: '[phone] Admit Date: 04/05/2019 12:07:00 AM Patient Name: Bruce Jameson I Visit Number: [id number] Discharge Date: ATTENTION: The Clinical Documentation Specialists (CDI) and [facility] Coding Staff appreciate your assistance in clarifying documentation. Please respond to the clarification below the line at the bottom and electronically sign. The CDI & [facility] Coding staff will review the response and follow-up if needed. Please note: Queries are made part of the Legal Health Record. If you have any questions, please contact the author of this message via ITS. Dr. Nancy Howard Atrial Fibrillation and Atiral Flutter are documented in the Consult and Progress Notes History/Risk factors: 53 year old male presents to the ED with dyspnea for one month duration. Medical history OA Clinical Indicators: Per Consult EKG showed atrtial flutter. Flutter and fibrillation with variable AV conduction rates in the 140s. Vss 125/98 141 EKG/telemetry: Flutter with variable AV block Treatment: Cardizem Drip; Lovenox, Coumadin; Eliquis, Digoxin; Consults: Cardiology In your professional opinion, can you please clarify the type of Arrhythmia, if known? * Chronic/Permanent Atrial Fibrillation * Paroxysmal Atrial Fibrillation * Persistent Atrial Fibrillation * Typical / Type 1 Atrial Flutter * Atypical / Type 2 Atrial Flutter * Other, please specify * Unable to determine (Last Revision: January 2018) MTDD
[2019-04-09] MEDS ORDERED: APIXABAN 5 MG TAB PO SCH (21:00)
[2019-04-10] MEDS ORDERED: ASPIRIN 81 MG PO SCH (09:00)
== END 2019-04-09 17:16 | disposition home health service (06) | DRG 292 ==
LOC: EC 20:33 → 2SICU 04-05 00:07 → 3SCARD 04-08 01:28
PROVIDERS: ADMIT Family Medicine; ATTEND Family Medicine
DX: I50.41 Acute combined systolic (congestive) and diastolic (congestive) heart failure (principal); I42.9 Cardiomyopathy, unspecified; I48.3 Typical atrial flutter; F12.10 Cannabis abuse, uncomplicated; F32.9 Major depressive disorder, single episode, unspecified; I08.1 Rheumatic disorders of both mitral and tricuspid valves; I27.20 Pulmonary hypertension, unspecified; I44.30 Unspecified atrioventricular block; I48.91 Unspecified atrial fibrillation; M19.011 Primary osteoarthritis, right shoulder; M19.012 Primary osteoarthritis, left shoulder; Z79.01 Long term (current) use of anticoagulants; Z79.82 Long term (current) use of aspirin; Z80.1 Family history of malignant neoplasm of trachea, bronchus and lung; Z82.49 Family history of ischemic heart disease and other diseases of the circulatory system; M54.5 Low back pain; Z86.14 Personal history of Methicillin resistant Staphylococcus aureus infection
CPT/HCPCS: 36415; 71046; 80048; 80053; 80061; 80306; 81003; 83605; 83735; 83880; 84443; 84484; 85025; 85027; 85379; 85610; 85730; 93306; 93970; 96365; 96366; 96372; 96376; 99285

== ENCOUNTER → 2020-09-26 | Day surgery (SDC) | payer OTHER ==
[2020-09-25 11:28] VITALS: BMI 45.0
[~2020-09-26] MED LIST: AMIODARONE 200 MG TAB PO SCH; MIDAZOLAM 2 MG/2 ML VIAL ONE; PROPOFOL 10 MG/ML 20 ML VIAL IV ONE; SODIUM CHLORIDE 0.9% 1,000 ML IV SCH; SODIUM CHLORIDE 0.9% 500 ML 500 ML IV ONE
[2020-09-26 06:58] VITALS: TEMP 98.2
[2020-09-26 07:18] LABS: INR 2.4 (<1.2); Prothrombin Time 23.6 sec (9.0-12.0)
[2020-09-26] MEDS: BENZOCAINE SPRAY 1 CAN TOPICAL ONE ×2 (07:20→07:30)
--- NOTE | 2020-09-26 08:07 | P.PCN ---
Date of Procedure: 09/26/20 Preoperative Diagnosis: Cardiomyopathy, atrial fibrillation and CHF Postoperative Diagnosis: Unsuccessful cardioversion with brief duration of conversion to sinus rhythm Procedure(s) Performed: LESLY followed by cardioversion Description of Procedure: Procedure: LESLY: This patient is a 54-year-old gentleman with history of persistent atrial fibrillation, cardiomyopathy and congestive heart failure who is been anticoagulated adequately. Patient is advised to have a LESLY examination prior to cardioversion. Department of anesthesia given, IV propofol for sedation. A lubricated Omni probe was introduced in the oropharynx and was advanced into the esophagus. Multiple views were obtained. Patient tolerated the procedure well. Color, pulsed and continuous with Doppler studies were performed. Saline contrast bubble injection was also done. Findings: The left atrial appendage is free of any clot. The interatrial septum is intact without any shunt. Contrast saline bubble injection did not reveal any crossing of the bubbles across the septum. Diuretic valve function is normal. Mitral valve showed mild regurgitation. Tricuspid showed trace regurgitation. Left atrium appears to moderate enlarged. Left ankle function appear to be mildly impaired. No plaque in the aorta. Impression and plan: No evidence of clot in the left atrial appendage. Proceed with cardioversion. CARDIOVERSION: After completion of the LESLY, anterior posterior paddles were applied. Synchronized shocks of 200 J, followed by 300 followed with the hand 60 J was applied. Patient remained in sinus rhythm briefly but converted back to sinus rhythm. Impression and plan: Unsuccessful cardioversion. Patient will be treated with by mouth amiodarone and will bring him back for cardioversion in 2-3 weeks.
[2020-09-26 08:12] VITALS: RESP 18
[2020-09-26 09:18] LABS: Calcium 8.5 mg/dL (8.4-10.2); Potassium 4.6 mmol/L (3.5-5.1)
[2020-09-26 09:28] VITALS: BP 131/65; PULSE 101
== END ==
LOC: CATHCVL 06:28
PROVIDERS: ATTEND Internal Medicine Cardiovascular Disease
DX: I48.19 Other persistent atrial fibrillation (principal); I34.0 Nonrheumatic mitral (valve) insufficiency; I42.0 Dilated cardiomyopathy; I50.42 Chronic combined systolic (congestive) and diastolic (congestive) heart failure; I11.0 Hypertensive heart disease with heart failure; I25.2 Old myocardial infarction; Z79.01 Long term (current) use of anticoagulants; Z79.82 Long term (current) use of aspirin; Z79.899 Other long term (current) drug therapy; Z98.890 Other specified postprocedural states; Z87.39 Personal history of other diseases of the musculoskeletal system and connective tissue; Z82.49 Family history of ischemic heart disease and other diseases of the circulatory system
CPT/HCPCS: 93312; 93320; 93325; 92960; 80048; 85610; J2250; J2704

== ENCOUNTER 2021-02-28 11:57 | Emergency (ER) | payer OTHER ==
[2021-02-28 12:01] VITALS: RESP 18
[2021-02-28] MEDS ORDERED: LIDOCAINE URO-JET JELLY 2% 5 ML KIT URETHRAL ONE (12:34)
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
[2021-02-28 13:02] LABS: Appearance,Urine Clear (Clear); Bilirubin,Urine Negative (Negative); Blood,Urine Negative (Negative); Color,Urine Yellow; Glucose,Urine (UA) Negative (Negative); Ketones,Urine Negative (Negative); Leukocyte Esterase,Urine Negative (Negative); Mucus,Urine Rare /hpf; Nitrite,Urine Negative (Negative); PH, Urine 5.5 (5.0-8.0); Protein,Urine 1+ (Negative); Specific Gravity,Urine 1.018 (1.001-1.035); Urobilinogen,Urine <2.0 mg/dL (<2.0); WBC,Urine 1 /hpf (0-5)
[2021-02-28] MEDS ORDERED: TAMSULOSIN 0.4 MG CAP.ER.24H PO STA (13:45)
[2021-02-28 14:16] VITALS: BP 144/78; PULSE 72; TEMP 98.3
== END 2021-02-28 14:16 | disposition home or self-care (01) ==
LOC: EC 11:57
DX: R33.9 Retention of urine, unspecified (principal); R14.0 Abdominal distension (gaseous); R10.30 Lower abdominal pain, unspecified; I48.91 Unspecified atrial fibrillation; E78.5 Hyperlipidemia, unspecified; I10 Essential (primary) hypertension; M19.90 Unspecified osteoarthritis, unspecified site; F32.9 Major depressive disorder, single episode, unspecified; Z79.82 Long term (current) use of aspirin; Z79.01 Long term (current) use of anticoagulants
CPT/HCPCS: 51702; 51798; 81001; 99283

== ENCOUNTER 2021-03-10 | Emergency (ER) | payer OTHER ==
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
== END 2021-03-10 18:57 | disposition home or self-care (01) ==
CPT/HCPCS: 99283

== ENCOUNTER 2021-03-15 15:56 | Emergency (ER) | payer OTHER ==
[2021-03-15 16:09] VITALS: BP 151/97; PULSE 128; RESP 24; TEMP 98.3
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
== END 2021-03-15 16:43 | disposition home or self-care (01) ==
LOC: EC 15:56
DX: R33.9 Retention of urine, unspecified (principal); I10 Essential (primary) hypertension; I48.91 Unspecified atrial fibrillation; E78.5 Hyperlipidemia, unspecified; M19.90 Unspecified osteoarthritis, unspecified site; F32.9 Major depressive disorder, single episode, unspecified; F12.90 Cannabis use, unspecified, uncomplicated; Z79.82 Long term (current) use of aspirin; Z79.01 Long term (current) use of anticoagulants
CPT/HCPCS: 51702; 99282

== ENCOUNTER → 2022-07-08 | Outpatient (CLI) | payer OTHER ==
[2022-07-08 22:55] LABS: INR 2.27 (0.90-1.11)
[2022-07-09 00:55] LABS: African American GFR (CKD) 69.1 (60.0-200.0); Albumin 4.2 g/dL (3.8-4.9); Albumin/Globulin Ratio 1.77 (1.60-3.17); Anion Gap 11.3 mmol/L (10.00-18.00); BUN/Creat Ratio 11.04 Ratio (12.00-20.00); Blood Urea Nitrogen 14.8 mg/dL (9.0-27.0); Calcium 9.2 mg/dL (8.7-10.3); Carbon Dioxide 26.1 mmol/L (20.0-27.5); Globulin 2.4 g/dL (1.6-3.3); Non-African American GFR(CKD) 59.6 (60.0-200.0); Potassium 4.2 mmol/L (3.5-5.5); Total Protein 6.6 g/dL (6.2-8.2)
[2022-07-09 02:01] LABS: HCT 46.5 % (39.6-50.0); HGB 15.3 g/dL (13.0-17.0); MCH 29.3 pg (27.0-32.0); MCHC 32.9 g/dL (32.0-37.0); MCV 89.1 fL (80.0-97.0); Mean Platelet Volume 9.6 fL (9.5-12.2); NRBC Per 100 WBC 0 /100 WBCS (0.0-0.0); Platelet Count 210 X 10*3/uL (140-440); RBC 5.22 X 10*6/uL (4.40-5.60); RDW 13.8 % (11.5-14.5)
== END | disposition home or self-care (01) ==
LOC: LABWHC1 14:18
PROVIDERS: ATTEND Nurse Practitioner Adult Health
DX: I48.19 Other persistent atrial fibrillation (principal)
CPT/HCPCS: 36415; 80053; 85027; 85610

== ENCOUNTER 2022-07-13 12:47 | Day surgery (SDC) | payer OTHER ==
[2022-07-09 15:33] VITALS: BMI 42.0
[~2022-07-13 12:47] MED LIST changes: -AMIODARONE 200 MG TAB PO SCH; -MIDAZOLAM 2 MG/2 ML VIAL ONE; -PROPOFOL 10 MG/ML 20 ML VIAL IV ONE; -SODIUM CHLORIDE 0.9% 500 ML 500 ML IV ONE
[2022-07-13] MEDS ORDERED: SODIUM CHLORIDE 0.9% 500 ML 500 ML IV ONE (13:20)
[2022-07-13 13:58] LABS: INR 2.1 (<1.2); Prothrombin Time 21.5 sec (9.0-12.0)
[2022-07-13] MEDS ORDERED: MIDAZOLAM 2 MG/2 ML VIAL ONE (15:13)
[2022-07-13] MEDS ORDERED: fentaNYL (PF) 50 MCG/ML 2 ML AMP ONE (15:13)
[2022-07-13] MEDS ORDERED: HEPARIN SODIUM,PORCINE 10,000 UNIT/ML 1 ML VIAL ONE (15:13)
[2022-07-13] MEDS ORDERED: LIDOCAINE 2% INJ 20 MG/ML (2 ML VIAL) ONE (15:13)
[2022-07-13] MEDS ORDERED: PROPOFOL 10 MG/ML 20 ML VIAL IV ONE (15:13)
[2022-07-13] MEDS ORDERED: SUCCINYLCHOLINE CHLORIDE 200 MG/10 ML VIAL IV ONE (15:13)
[2022-07-13] MEDS ORDERED: SODIUM CHLORIDE 0.9% 1,000 ML IV ONE ×3 (15:44→19:06)
[2022-07-13] MEDS ORDERED: HEPARIN SOD,PORK IN 0.45% NACL 25,000 UNIT in 0.45% NACL 1 250ML.BAG IV ONE (15:45)
[2022-07-13] MEDS ORDERED: LIDOCAINE 1% INJ 10MG/ML (30 ML VIAL-PF) SQ ONE (16:01)
[2022-07-13] MEDS ORDERED: IOPAMIDOL-370 100ML BTL INJ ONE (17:21)
[2022-07-13] MEDS ORDERED: ACETAMINOPHEN TAB 325 MG TAB PO PRN (18:10)
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
--- NOTE | 2022-07-13 18:20 | P.EPPROC ---
- EP Procedure Note Electrophysiology Procedure Note: PROCEDURE A. fib ablation/PVI/left atrial septal ablation DIAGNOSIS Persistent Atrial fibrillation, symptomatic, refractory to therapy RESULT No left atrial appendage mass seen on intracardiac echo Termination of atrial fibrillation during left inferior pulmonary vein isolation Successful A. fib ablation/pulmonary vein isolation of all veins using cryo- ablation Complete entrance block in all 4 veins confirmed Left atrial septal ablation No evidence for phrenic nerve injury Esophageal deflection YES , right-sided Electrical cardioversion with a synchronized shock across the chest for atrial tachycardia that was induced during the right superior pulmonary vein cannulation PROCEDURE DETAILS Patient was brought to the EP lab in a fasting state after obtaining written informed consent. Procedure performed under general anesthesia Esophagus was intubated. Esophageal temperature monitoring with circa catheter. Esophageal deflection with an endoscope to avoid hypothermia of the esophagus. After initial muscle relaxant use, muscle relaxants were not given thereafter in order to assess phrenic nerve during procedure. Patient prepped and draped as per protocol Cryo ablation-set up with standard preparation of the cryoablation tools done. Femoral Venous access obtained on the right and left groins and sheaths placed Diagnostic catheters for the high right atrium, phrenic nerve stimulation and pacing, His bundle, coronary sinus placed Intracardiac echo catheter placed. Long sheath placed in the right atrium Left and right transseptal catheterization performed under intracardiac echo guidance. Intravenous heparin with aCT above 300 Later, catheter positioning and balloon positioning in the left atrium and pulmonary veins, under intracardiac echo guidance Diagnostic EP study with coronary sinus pacing and recording Baseline measurements: Sinus cycle length 872 ms, RI interval 140 ms and QRS 78 ms QT 425 ms AH 84 and HV 65 ms Transseptal catheterization performed RA pressure 16/12/14 LA pressure 21/9/16 Transseptal catheterization performed with standard sheath. The cryoablation sheath was then placed with an over the wire exchange without any acute complications. The cryoablation balloon was placed in the office of each pulmonary vein and all 4 pulmonary veins were isolated. IV dye was injected to confirm occlusion. Goal: achieve complete occlusion of the pulmonary vein, achieve -30 degrees C at 30 seconds and achieve -40 degrees C at 60 seconds and a time to effect of less than 60 seconds. If not, the balloon was repositioned to obtain this result After completion of Cryoblation with durations from 180-240 seconds, entrance block was confirmed with the Attain circular catheter in a roving fashion around the antrum of the pulmonary veins Phrenic nerve pacing was performed from the SVC, right innominate vein area and diaphragm voltage was monitored. Diaphragmatic contractions were also monitored manually for strength of contraction. At the end of the procedure the Achieve catheter was once again used to check for entrance block Termination of atrial fibrillation occurred during the left inferior pulmonary vein isolation The anatomy of the left-sided veins was unusual and was more anterior posterior rather than superior-inferior in xarelto positions Left septal ablation was performed cannulation of the vein in the rhina A full carinal ablation with septal ablation was performed and the area was quiescent During cannulation of the right superior pulmonary vein and atrial tachycardia cycle length of about 245 ms was induced At the end of the procedure he underwent electrical cardioversion successfully to sinus rhythm Phrenic nerve stimulation was performed to confirm diaphragmatic stimulation the end of the procedure Cine fluoroscopy was performed at the very end of the procedure to confirm movement of both diaphragms with inspiration and expiration At the end of the procedure the patient was extubated Venous sheaths were removed and hemostasis assured with a closure device PROCEDURES PERFORMED Diagnostic EP study CS pacing and recording Left and right transseptal catheterization Catheter the mapping of the tachycardia Intracardiac echocardiography Pulmonary vein isolation with transseptal and comprehensive EPS, [id number] Linear ablation, left atrium, +[id number] Electrical cardioversion with a synchronized shock across the chest [id number]
[2022-07-13] MEDS ORDERED: ONDANSETRON 4 MG/2 ML VIAL IVP ONE (18:23)
[2022-07-13] MEDS: ACETAMINOPHEN IV (For NPO) 1,000 MG in EMPTY BAG 1 BAG IVPB ONE ×2 (18:45→19:00)
[2022-07-13] MEDS ORDERED: diphenhydrAMINE 50 MG/ML 1 ML VIAL IVP ONE (18:59)
[2022-07-13] MEDS: LACTATED RINGERS 1,000 ML IV SCH (20:21)
[2022-07-13] MEDS: METOPROLOL TARTRATE 50 MG TAB PO SCH (20:36)
[2022-07-13] MEDS ORDERED: WARFARIN 7.5 MG TAB PO ONE (21:00)
[2022-07-13] MEDS ORDERED: HYDROcodone/APAP 5-325MG 1 EACH TAB PO PRN (22:16)
[2022-07-14] MEDS: LACTATED RINGERS 1,000 ML IV SCH (05:19)
--- NOTE | 2022-07-14 08:11 | P.DS ---
Providers Attending physician: Des Magaña [facility] Course: Patient is doing well. He has been ambulating around to the bathroom no dizziness no lightheadedness Mild sore throat Rhythm is regular EKG is normal Blood pressure 101/67 mmHg pulse rate in the 70s afebrile 98.3F Groin is healed well Sutures were removed by the nurse in my presence No hematoma Impression Long-standing persistent atrial fibrillation Termination of atrial fibrillation during L IPV ablation Successful cryoablation of the pulmonary veins with complete isolation and ablation of left atrial septum Plan Reduce metoprolol to 50 g twice daily Continue Coumadin Follow Dr. Chow in the week Continue all other medications as before Discharged today by 12 known if him 10K stable Discussed with an ax Plan - Discharge Summary Discharge Rx Participant: No New Discharge Prescriptions: New RX: Metoprolol Tartrate [Lopressor] 50 mg PO BID #90 tab Discontinued RX: Metoprolol Tartrate [Lopressor] 75 mg PO BID No Action RX: Aspirin 81 mg PO DAILY #30 chew RX: Warfarin [Coumadin] 7.5 mg PO Q48H Warfarin [Coumadin] 5 mg PO Q48H Discharge Medication List RX: Aspirin 81 mg PO DAILY #30 chew 04/09/19 [Rx] RX: Warfarin [Coumadin] 7.5 mg PO Q48H 09/25/20 [History] Warfarin [Coumadin] 5 mg PO Q48H 09/26/20 [History] RX: Metoprolol Tartrate [Lopressor] 50 mg PO BID #90 tab 07/13/22 [Rx] Follow up Appointment(s)/Referral(s): Kade Chow MD [STAFF PHYSICIAN] - 1 Week Patient Instructions/Handouts: Electrophysiology Study (DC) Activity/Diet/Wound Care/Special Instructions: Post EP study - Ablation instructions 1. Keep access sites dry for 2 days. 2. No heavy lifting or straining for 2 days. 3. Avoid bending the hips repeatedly for 2 days. 4. You may go up and down stairs slowly Call if the following is noted 1. Bleeding, increasing swelling or pain at the access sites. 2. Increasing chest discomfort, especially upon taking a deep breath. 3. Increasing shortness of breath, at rest or with exertion. 4. Undue cough / phlegm 5. Difficulty or pain while swallowing. 6. Pain or change in color in the extremities. 7. Fever, chills, rigors. 8. Increasing headache or neurologic symptoms. 9. Dizziness, fainting, palpitations Reduce metoprolol dose to 50 mg twice daily Continue all other medications including Coumadin Do not stop Coumadin Discharge Disposition: HOME SELF-CARE
[2022-07-14] MEDS ORDERED: ASPIRIN 81 MG PO SCH (09:00)
[2022-07-14 09:20] VITALS: BP 121/84; PULSE 72; RESP 18; TEMP 98.6
[2022-07-14 09:35] LABS: INR 2.22 (0.90-1.11); Prothrombin Time 23.5 sec (9.9-11.9)
[2022-07-14] MEDS: METOPROLOL TARTRATE 50 MG TAB PO SCH (09:58)
== END 2022-07-14 11:50 | disposition home or self-care (01) ==
LOC: CATHEP 12:47 → 6NMEDSUR 18:00 → CATHEP 07-14 11:50
PROVIDERS: ATTEND Internal Medicine Clinical Cardiac Electrophysiology
DX: I48.11 Longstanding persistent atrial fibrillation (principal); I47.1 Supraventricular tachycardia; I42.0 Dilated cardiomyopathy; J02.9 Acute pharyngitis, unspecified; G47.33 Obstructive sleep apnea (adult) (pediatric); Z20.822 Contact with and (suspected) exposure to COVID-19; Z82.49 Family history of ischemic heart disease and other diseases of the circulatory system; Z98.890 Other specified postprocedural states; Z79.82 Long term (current) use of aspirin; Z79.01 Long term (current) use of anticoagulants; Z79.899 Other long term (current) drug therapy
CPT/HCPCS: 92960; 93656; 93657; 85610 ×2; 87635; C1894 ×2; C1769 ×4; C1760; C1730 ×2; C1759; C1893; C1733; C1766; J1200; J2405; J2001; J0131; Q9967; J1644

== ENCOUNTER → 2022-08-10 | Day surgery (SDC) | payer OTHER ==
[~2022-08-10] MED LIST changes: +LACTATED RINGERS 1,000 ML IV SCH; +METOPROLOL TARTRATE 50 MG TAB PO STA
[2022-08-10 06:31] VITALS: RESP 16; TEMP 98.9
[2022-08-10 06:54] LABS: African American GFR (CKD) >90 (>60 ml/min/1.73 sqM); Anion Gap 9 mmol/L; Blood Urea Nitrogen 15 mg/dL (9-20); Calcium 8.6 mg/dL (8.4-10.2); Carbon Dioxide 26 mmol/L (22-30); Chloride 104 mmol/L (98-107); Glucose 133 mg/dL (74-99); Non-African American GFR(CKD) 81 (>60 ml/min/1.73 sqM); Potassium 4.6 mmol/L (3.5-5.1); Sodium 139 mmol/L (137-145)
[2022-08-10 06:55] LABS: INR 2.3 (<1.2); Prothrombin Time 23.1 sec (9.0-12.0)
--- NOTE | 2022-08-10 07:50 | P.EPPROC ---
- EP Procedure Note Electrophysiology Procedure Note: Diagnosis Typical atrial flutter with RVR Status post PVI and left atrial septal ablation about 3 weeks back Patient on Coumadin, INR 2.3 today Sodium 139, potassium 4.6, BUN 15 and creatinine 1.0 Procedure Patient underwent electrical cardioversion under anesthesia Successful shinto of sinus rhythm with a 200 J biphasic shock in the AP configuration Postprocedure 12-lead EKG shows sinus mechanism Plan Continue current cardiac medications including warfarin Follow-up with Dr. Chow in about 2 weeks If he has recurrent atrial flutter then proceed with an atrial flutter ablation
[2022-08-10 09:46] VITALS: BP 120/77; PULSE 84
== END ==
LOC: CATHCVL 05:55
PROVIDERS: ATTEND Internal Medicine Clinical Cardiac Electrophysiology
DX: I48.3 Typical atrial flutter (principal); I50.9 Heart failure, unspecified; I48.91 Unspecified atrial fibrillation; Z79.82 Long term (current) use of aspirin; Z82.49 Family history of ischemic heart disease and other diseases of the circulatory system; Z79.899 Other long term (current) drug therapy
CPT/HCPCS: 80048; 85610; 92960